=== PATIENT | male | born 1945 | race Caucasian/White ===

== ENCOUNTER 2021-05-01 16:52 | Inpatient (IN) | payer OTHER ==
[~2021-05-01] VITALS: Ht 172.7 cm; Wt 112.6 kg
[2021-05-01] MEDS ORDERED: ACETAMINOPHEN 325 MG TAB PO ONE (22:00)
[2021-05-01 22:12] LABS: Basophils # (auto) 0.1 10 ^3/uL (0-0.2); Basophils % (auto) 0.3 % (0.0-2.0); Eosinophils # (auto) 0 10 ^3/uL (0-0.8); Hematocrit 45.1 % (41.0-53.0); Hemoglobin 15.1 g/dL (13.5-17.5); Lymphocytes % (auto) 5.9 % (10.0-50.0); Mean Corpuscular Hemoglobin 31.8 pg (28.0-32.0); Mean Corpuscular Hgb Conc. 33.5 g/dL (32.0-36.0); Monocytes # (auto) 0.7 10 ^3/uL (0-1.3); Monocytes % (auto) 4.1 % (0.0-12.0); Neutrophils # (auto) 15.5 10 ^3/uL (1.6-8.6); Neutrophils % (auto) 89.7 % (37.0-80.0); Nucleated Red Blood Cells % 0.1 %; Red Blood Cells 4.74 10^6/uL (4.5-5.90); White Blood Cell 17.3 10^3/uL (4.4-10.8)
[2021-05-01 22:27] LABS: INR 1.83 (0.9-1.15); Partial Thromboplastin Time 35.6 sec (23.6-33.0)
[2021-05-01 22:29] LABS: Anion Gap 6 (5-15); Blood Urea Nitrogen 12 mg/dL (7-18); Calcium 8.5 mg/dL (8.5-10.1); Carbon Dioxide 27 mmol/L (21-32); Chloride 104 mmol/L (98-107); Glucose 287 mg/dL (74-106); Potassium 4.4 mmol/L (3.5-5.1); Sodium 137 mmol/L (136-145)
[2021-05-01 22:35] LABS: Alanine Aminotransferase 21 U/L (16-61); Alkaline Phosphatase 88 U/L (45-117); Aspartate Aminotransferase 17 U/L (15-37); BUN/Creatinine Ratio 11.3; Bilirubin, Total 0.6 mg/dL (0.2-1.0); GFR African American 87 mL/min; GFR Non-African American 72 mL/min; Total Protein 7.6 g/dL (6.4-8.2)
[2021-05-01 22:48] LABS: Lactic Acid w/Reflex 3.6 mmol/L (0.4-2.0)
[2021-05-02] MEDS ORDERED: AZITHROMYCIN 500MG/ 250ML 250 ML IV ONE (01:30)
[2021-05-02] MEDS ORDERED: cefTRIAXone 1GM/50ML D5W 50 ML IV ONE (01:30)
[2021-05-02] MEDS ORDERED: MORPHINE SULFATE INJECTION 2 MG/ML SYRG IV PRN ×5 (09:45→15:15)
[2021-05-02] MEDS ORDERED: NITROGLYCERIN 0.4 MG SL TAB SL PRN ×2 (09:45→14:30)
[2021-05-02] MEDS ORDERED: VITAMINS A & D (TOPICAL) OINT 5GM TOP ONE (14:30)
[2021-05-02] MEDS ORDERED: ONDANSETRON HCL 4 MG/2 ML VIAL IV PRN (14:30)
[2021-05-02] MEDS ORDERED: ACETAMINOPHEN 325 MG TAB PO PRN (14:30)
[2021-05-02] MEDS ORDERED: VALPROATE INJ 250 MG in SODIUM CHL 0.9% 50 ML IV ONE (14:30)
[2021-05-02] MEDS ORDERED: ALUM & MAG HYDROX-SIMETH LIQ(MAALOX) 30 ML PO PRN (14:30)
[2021-05-02] MEDS ORDERED: LORazepam 0.5 MG TAB PO PRN (14:30)
[2021-05-02] MEDS ORDERED: CLINDAMYCIN 600MG IV 50 ML IV ONE (14:30)
[2021-05-02] MEDS ORDERED: VITAMINS A & D (TOPICAL) OINT 5GM TOP PRN (14:30)
[2021-05-02] MEDS ORDERED: HYDROcodone-ACET 5/325MG TAB PO PRN (14:30)
[2021-05-02] MEDS ORDERED: DOCUSATE SOD 100 MG CAP PO PRN (14:30)
[2021-05-02] MEDS ORDERED: DEXTROSE (50%) 50ML SYRG IV PRN (14:45)
[2021-05-02] MEDS: SODIUM CHLORIDE 0.9% 1,000 ML IV SCH (16:43)
[2021-05-02] MEDS ORDERED: WARFARIN SODIUM 5 MG TAB PO ONE (17:00)
[2021-05-02] MEDS: TAMSULOSIN HYDROCHLORIDE 0.4 MG CAP PO SCH (18:00)
[2021-05-02 18:21] VITALS: BP 158/70
[2021-05-02] MEDS: ACCU-CHEK COMFORT CURVE STRIP VI SCH ×2 (18:37→22:18)
[2021-05-02] MEDS: InsuLIN REG 1unit/0.01ml Soln (100units/ml) SC SCH ×2 (18:40→22:26)
[2021-05-02] MEDS ORDERED: GABA300C10 PO (18:45)
[2021-05-02] MEDS ORDERED: ATOR-47 PO (18:45)
[2021-05-02] MEDS ORDERED: DIVA250T12 PO (18:45)
[2021-05-02] MEDS ORDERED: PHEN32.44 PO (18:45)
[2021-05-02] MEDS ORDERED: WARF2.5T39 PO (18:45)
[2021-05-02] MEDS ORDERED: TAM04C PO (18:45)
[2021-05-02] MEDS ORDERED: MIRT1TAB38 PO (18:45)
[2021-05-02] MEDS ORDERED: INFLUENZA QUAD 2021-2022 0.5 ML SYRG IM ONE (19:15)
[2021-05-02 20:00] VITALS: BP 140/77
[2021-05-02 22:00] VITALS: BP 140/77
[2021-05-02] MEDS: GABAPENTIN 100 MG CAP PO SCH (22:00)
[2021-05-02] MEDS: ATORVASTATIN 20 MG TAB PO SCH (22:00)
[2021-05-02] MEDS: PHENobarbital 32.4 MG TAB PO SCH (22:00)
[2021-05-02] MEDS ORDERED: CLINDAMYCIN 600MG IV 50 ML IV SCH (22:00)
[2021-05-02] MEDS ORDERED: VALPROATE INJ 250 MG in SODIUM CHL 0.9% 50 ML IV SCH (22:00)
[2021-05-02] MEDS: MIRTAZAPINE 30 MG TAB PO SCH (22:00)
[2021-05-02] MEDS: FAMOTIDINE (10MG/ML) 2ML VL IV SCH (22:27)
[2021-05-03 05:00] VITALS: BP 123/91
[2021-05-03] MEDS: CLINDAMYCIN 600MG IV 50 ML IV SCH ×3 (05:15→22:28)
[2021-05-03] MEDS: GABAPENTIN 100 MG CAP PO SCH ×3 (05:32→22:28)
[2021-05-03] MEDS: PHENobarbital 32.4 MG TAB PO SCH ×3 (05:32→22:28)
[2021-05-03 05:48] LABS: Basophils # (auto) 0 10 ^3/uL (0-0.2); Basophils % (auto) 0.3 % (0.0-2.0); Eosinophils # (auto) 0.4 10 ^3/uL (0-0.8); Hematocrit 39.5 % (41.0-53.0); Hemoglobin 13.9 g/dL (13.5-17.5); Lymphocytes # (auto) 1.6 10 ^3/uL (0.4-5.4); Lymphocytes % (auto) 20.8 % (10.0-50.0); Mean Corpuscular Hemoglobin 33.7 pg (28.0-32.0); Mean Corpuscular Hgb Conc. 35.3 g/dL (32.0-36.0); Mean Corpuscular Volume 95.7 fL (80.0-100.0); Monocytes # (auto) 0.6 10 ^3/uL (0-1.3); Monocytes % (auto) 8.1 % (0.0-12.0); Neutrophils % (auto) 65.8 % (37.0-80.0); Nucleated Red Blood Cells % 0.1 %; Red Blood Cells 4.13 10^6/uL (4.5-5.90); Red Cell Distribution Width 13.7 % (11.8-14.3); White Blood Cell 7.6 10^3/uL (4.4-10.8)
[2021-05-03 06:04] LABS: Albumin 2.5 g/dL (3.4-5.0); Calcium 8.1 mg/dL (8.5-10.1); Magnesium 1.9 mg/dL (1.6-2.6); Potassium 3.8 mmol/L (3.5-5.1)
[2021-05-03 06:10] LABS: BUN/Creatinine Ratio 19.5; Bilirubin, Total 0.5 mg/dL (0.2-1.0); INR 1.36 (0.9-1.15); Phosphorus 1.9 mg/dL (2.5-4.90); Total Protein 6.6 g/dL (6.4-8.2)
[2021-05-03] MEDS: ACCU-CHEK COMFORT CURVE STRIP VI SCH ×4 (06:56→22:29)
[2021-05-03] MEDS: InsuLIN REG 1unit/0.01ml Soln (100units/ml) SC SCH ×5 (06:57→23:08)
[2021-05-03 08:06] VITALS: BP 114/93
[2021-05-03] MEDS: SODIUM CHLORIDE 0.9% 1,000 ML IV SCH ×2 (11:06→23:50)
[2021-05-03] MEDS: cefTRIAXone 1GM/50ML D5W 50 ML IV SCH (11:07)
[2021-05-03] MEDS: FAMOTIDINE (10MG/ML) 2ML VL IV SCH ×2 (11:07→22:28)
[2021-05-03] MEDS: VALPROATE INJ 250 MG in SODIUM CHL 0.9% 50 ML IV SCH ×2 (11:50→22:30)
[2021-05-03 12:17] VITALS: BP 126/57
[2021-05-03 16:21] VITALS: BP 137/58
[2021-05-03] MEDS: TAMSULOSIN HYDROCHLORIDE 0.4 MG CAP PO SCH (17:52)
[2021-05-03 21:46] VITALS: BP 130/58
[2021-05-03 22:28] LABS: Urine Bacteria FEW /hpf (None Seen); Urine Blood 3+ /uL (Negative); Urine Mucus FEW (None Seen); Urine Specific Gravity 1.029 (1.001-1.035); Urine WBC 113 /hpf (0 - 3)
[2021-05-03] MEDS: MIRTAZAPINE 30 MG TAB PO SCH (22:28)
[2021-05-03] MEDS: ATORVASTATIN 20 MG TAB PO SCH (22:28)
[2021-05-03 22:55] LABS: Amphetamine Screen, Urine NEGATIVE (NEGATIVE); Barbiturate Scree,Urine POSITIVE (NEGATIVE); Benzodiazephine Screen, Urine NEGATIVE (NEGATIVE); Cannabinoid Screen, Urine NEGATIVE (NEGATIVE); Cocaine Screen, Urine NEGATIVE (NEGATIVE); Opiate Scree,Urine NEGATIVE (NEGATIVE); Phencyclidine Screen, Urine NEGATIVE (NEGATIVE)
[2021-05-04 05:00] VITALS: BP 141/68
[2021-05-04] MEDS: PHENobarbital 32.4 MG TAB PO SCH ×2 (05:58→13:18)
[2021-05-04] MEDS: GABAPENTIN 100 MG CAP PO SCH ×2 (05:58→13:19)
[2021-05-04] MEDS: CLINDAMYCIN 600MG IV 50 ML IV SCH ×3 (05:58→21:40)
[2021-05-04 06:45] LABS: Basophils # (auto) 0 10 ^3/uL (0-0.2); Basophils % (auto) 0.7 % (0.0-2.0); Eosinophils # (auto) 0.4 10 ^3/uL (0-0.8); Eosinophils % (auto) 6.5 % (0.0-7.0); Hematocrit 38.2 % (41.0-53.0); Hemoglobin 13.2 g/dL (13.5-17.5); Lymphocytes # (auto) 1.8 10 ^3/uL (0.4-5.4); Lymphocytes % (auto) 29.3 % (10.0-50.0); Mean Corpuscular Hgb Conc. 34.6 g/dL (32.0-36.0); Mean Corpuscular Volume 95.5 fL (80.0-100.0); Monocytes # (auto) 0.5 10 ^3/uL (0-1.3); Neutrophils # (auto) 3.5 10 ^3/uL (1.6-8.6); Neutrophils % (auto) 55.5 % (37.0-80.0); Nucleated Red Blood Cells % 0.1 %; Red Cell Distribution Width 13.8 % (11.8-14.3); White Blood Cell 6.3 10^3/uL (4.4-10.8)
[2021-05-04] MEDS: ACCU-CHEK COMFORT CURVE STRIP VI SCH ×4 (06:50→22:24)
[2021-05-04] MEDS: InsuLIN REG 1unit/0.01ml Soln (100units/ml) SC SCH ×4 (06:52→22:28)
[2021-05-04 07:02] LABS: Calcium 7.9 mg/dL (8.5-10.1); Potassium 3.6 mmol/L (3.5-5.1)
[2021-05-04 07:07] LABS: BUN/Creatinine Ratio 15.5
[2021-05-04 08:25] VITALS: BP 129/55
[2021-05-04] MEDS: cefTRIAXone 1GM/50ML D5W 50 ML IV SCH (08:25)
[2021-05-04 09:00] VITALS: BP 129/55
[2021-05-04] MEDS: FAMOTIDINE (10MG/ML) 2ML VL IV SCH ×2 (10:02→21:40)
[2021-05-04] MEDS: VALPROATE INJ 250 MG in SODIUM CHL 0.9% 50 ML IV SCH ×2 (10:03→22:30)
[2021-05-04] MEDS ORDERED: metroNIDAZOLE 500 MG TAB PO ONE (11:15)
[2021-05-04 13:00] VITALS: BP 130/68
[2021-05-04 14:14] LABS: INR 1.22 (0.9-1.15); Partial Thromboplastin Time 31.8 sec (23.6-33.0)
[2021-05-04] MEDS: SODIUM CHLORIDE 0.9% 1,000 ML IV SCH (16:10)
[2021-05-04] MEDS: metroNIDAZOLE 500 MG TAB PO SCH ×2 (16:10→21:41)
[2021-05-04] MEDS ORDERED: WARFARIN SODIUM 2 MG TAB PO ONE (17:00)
[2021-05-04] MEDS: TAMSULOSIN HYDROCHLORIDE 0.4 MG CAP PO SCH (19:34)
[2021-05-04 21:37] VITALS: BP 146/57
[2021-05-04] MEDS: MIRTAZAPINE 30 MG TAB PO SCH (21:41)
[2021-05-04] MEDS: ATORVASTATIN 20 MG TAB PO SCH (21:41)
[2021-05-04] MEDS: GABAPENTIN 300 MG CAP PO SCH (21:41)
[2021-05-05] MEDS: PHENobarbital 32.4 MG TAB PO SCH ×4 (00:09→17:42)
[2021-05-05 05:09] VITALS: BP 105/72
[2021-05-05] MEDS: InsuLIN REG 1unit/0.01ml Soln (100units/ml) SC SCH ×4 (06:23→22:34)
[2021-05-05] MEDS: ACCU-CHEK COMFORT CURVE STRIP VI SCH ×4 (06:24→22:35)
[2021-05-05] MEDS: CLINDAMYCIN 600MG IV 50 ML IV SCH (06:33)
[2021-05-05] MEDS: metroNIDAZOLE 500 MG TAB PO SCH ×3 (06:33→22:07)
[2021-05-05] MEDS: GABAPENTIN 300 MG CAP PO SCH ×3 (06:34→22:07)
[2021-05-05 06:38] LABS: INR 1.24 (0.9-1.15); Partial Thromboplastin Time 28.2 sec (23.6-33.0)
[2021-05-05 06:46] LABS: Calcium 7.8 mg/dL (8.5-10.1); Potassium 3.6 mmol/L (3.5-5.1)
[2021-05-05 06:50] LABS: BUN/Creatinine Ratio 11.3
[2021-05-05] MEDS: SODIUM CHLORIDE 0.9% 1,000 ML IV SCH (07:17)
[2021-05-05 08:20] VITALS: BP 143/63
[2021-05-05] MEDS: cefTRIAXone 1GM/50ML D5W 50 ML IV SCH (08:20)
[2021-05-05 09:00] VITALS: BP 143/62
[2021-05-05] MEDS: FAMOTIDINE (10MG/ML) 2ML VL IV SCH (09:36)
[2021-05-05] MEDS: VALPROATE INJ 250 MG in SODIUM CHL 0.9% 50 ML IV SCH ×2 (09:36→22:08)
[2021-05-05] MEDS: FLORASTOR (S. BOULARDII) 250 MG CAP PO SCH (09:36)
[2021-05-05 13:00] VITALS: BP 121/68
[2021-05-05 13:41] LABS: Basophils # (auto) 0 10 ^3/uL (0-0.2); Basophils % (auto) 0.5 % (0.0-2.0); Eosinophils # (auto) 0.4 10 ^3/uL (0-0.8); Eosinophils % (auto) 6.6 % (0.0-7.0); Hematocrit 37.9 % (41.0-53.0); Hemoglobin 13.1 g/dL (13.5-17.5); Lymphocytes # (auto) 1.3 10 ^3/uL (0.4-5.4); Lymphocytes % (auto) 22.4 % (10.0-50.0); Mean Corpuscular Hgb Conc. 34.6 g/dL (32.0-36.0); Mean Corpuscular Volume 95.4 fL (80.0-100.0); Monocytes # (auto) 0.5 10 ^3/uL (0-1.3); Monocytes % (auto) 8.4 % (0.0-12.0); Neutrophils # (auto) 3.7 10 ^3/uL (1.6-8.6); Neutrophils % (auto) 62.1 % (37.0-80.0); Nucleated Red Blood Cells % 0.1 %; Red Blood Cells 3.97 10^6/uL (4.5-5.90); Red Cell Distribution Width 13.4 % (11.8-14.3)
[2021-05-05] MEDS: CLINDAMYCIN HCL 150 MG CAP PO SCH ×2 (14:36→22:07)
[2021-05-05 17:00] VITALS: BP 153/62
[2021-05-05] MEDS ORDERED: WARFARIN SODIUM 2 MG TAB PO ONE (17:00)
[2021-05-05] MEDS: TAMSULOSIN HYDROCHLORIDE 0.4 MG CAP PO SCH (17:42)
[2021-05-05 22:00] VITALS: BP 139/72
[2021-05-05] MEDS: ATORVASTATIN 20 MG TAB PO SCH (22:07)
[2021-05-05] MEDS: MIRTAZAPINE 30 MG TAB PO SCH (22:07)
[2021-05-06] MEDS: PHENobarbital 32.4 MG TAB PO SCH ×3 (01:30→12:07)
[2021-05-06 05:00] VITALS: BP 140/65
[2021-05-06] MEDS: InsuLIN REG 1unit/0.01ml Soln (100units/ml) SC SCH ×2 (06:20→12:16)
[2021-05-06] MEDS: ACCU-CHEK COMFORT CURVE STRIP VI SCH ×2 (06:21→12:16)
[2021-05-06] MEDS: CLINDAMYCIN HCL 150 MG CAP PO SCH ×2 (06:38→14:32)
[2021-05-06] MEDS: metroNIDAZOLE 500 MG TAB PO SCH ×2 (06:39→14:33)
[2021-05-06] MEDS: GABAPENTIN 300 MG CAP PO SCH ×2 (06:39→14:33)
[2021-05-06 08:00] VITALS: BP 162/65
[2021-05-06 09:00] VITALS: BP 162/65
[2021-05-06] MEDS: cefTRIAXone 1GM/50ML D5W 50 ML IV SCH (09:55)
[2021-05-06] MEDS: FLORASTOR (S. BOULARDII) 250 MG CAP PO SCH (09:55)
[2021-05-06] MEDS: VALPROATE INJ 250 MG in SODIUM CHL 0.9% 50 ML IV SCH (10:37)
[2021-05-06 12:22] VITALS: BP 150/68
[2021-05-06 15:21] LABS: Basophils # (auto) 0.1 10 ^3/uL (0-0.2); Basophils % (auto) 0.9 % (0.0-2.0); Eosinophils # (auto) 0.5 10 ^3/uL (0-0.8); Eosinophils % (auto) 6.4 % (0.0-7.0); Hematocrit 42.3 % (41.0-53.0); Hemoglobin 14.7 g/dL (13.5-17.5); Lymphocytes # (auto) 1.6 10 ^3/uL (0.4-5.4); Lymphocytes % (auto) 21.9 % (10.0-50.0); Mean Corpuscular Hemoglobin 32.7 pg (28.0-32.0); Mean Corpuscular Hgb Conc. 34.6 g/dL (32.0-36.0); Mean Corpuscular Volume 94.3 fL (80.0-100.0); Monocytes # (auto) 0.6 10 ^3/uL (0-1.3); Monocytes % (auto) 7.8 % (0.0-12.0); Neutrophils # (auto) 4.5 10 ^3/uL (1.6-8.6); Red Blood Cells 4.49 10^6/uL (4.5-5.90); Red Cell Distribution Width 13.3 % (11.8-14.3); White Blood Cell 7.2 10^3/uL (4.4-10.8)
[2021-05-06 15:36] LABS: INR 2.14 (0.9-1.15)
[2021-05-06] MEDS ORDERED: INFLUENZA QUAD 2021-2022 0.5 ML SYRG IM ONE (17:44)
== END 2021-05-06 19:35 | disposition home health service (06) | DRG 871 ==
LOC: EDBD 16:52 → ER 16:52 → TELE 05-02 09:38 → TELE-WESTW 05-02 16:59
PROVIDERS: ADMIT Hospitalist; ATTEND Internal Medicine
DX: A41.9 Sepsis, unspecified organism (principal); J69.0 Pneumonitis due to inhalation of food and vomit; G92.8 Other toxic encephalopathy; D68.69 Other thrombophilia; G40.209 Localization-related (focal) (partial) symptomatic epilepsy and epileptic syndromes with complex partial seizures, not intractable, without status epilepticus; I69.354 Hemiplegia and hemiparesis following cerebral infarction affecting left non-dominant side; R09.02 Hypoxemia; L89.92 Pressure ulcer of unspecified site, stage 2; E78.5 Hyperlipidemia, unspecified; E11.42 Type 2 diabetes mellitus with diabetic polyneuropathy; E66.9 Obesity, unspecified; Z23 Encounter for immunization; I11.0 Hypertensive heart disease with heart failure; I48.91 Unspecified atrial fibrillation; R19.7 Diarrhea, unspecified; F03.90 Unspecified dementia, unspecified severity, without behavioral disturbance, psychotic disturbance, mood disturbance, and anxiety; I50.9 Heart failure, unspecified; N40.0 Benign prostatic hyperplasia without lower urinary tract symptoms; Z74.01 Bed confinement status; Z79.01 Long term (current) use of anticoagulants; Z79.899 Other long term (current) drug therapy; Z82.0 Family history of epilepsy and other diseases of the nervous system; Z82.49 Family history of ischemic heart disease and other diseases of the circulatory system; Z86.718 Personal history of other venous thrombosis and embolism; Z91.19 Patient's noncompliance with other medical treatment and regimen; Z88.5 Allergy status to narcotic agent; Z91.041 Radiographic dye allergy status; Z89.212 Acquired absence of left upper limb below elbow; Z68.36 Body mass index [BMI] 36.0-36.9, adult
CPT/HCPCS: 36415; 70450; 71045; 80048; 80053; 80164; 80184; 80307; 81001; 82085; 82306; 82550; 82962; 83605; 83735; 83880; 84100; 84146; 84443; 84484; 85025; 85379; 85610; 85730; 87040; 87086; 87426; 87493; 90686; 92507; 92610; 93005; 93306; 95819; 96365; 96368; 97110; 97116; 97163; G0378; J0696; J1815; J3490